=== PATIENT | female | born 1975 | race Two or more races ===

== ENCOUNTER 2020-07-29 05:22 | Day surgery (SDC) | payer OTHER ==
[2020-07-27 16:55] VITALS: BMI 33.2
[2020-07-29] MEDS ORDERED: MIDAZOLAM HCL 2 MG/2 ML SINGLE DOSE VIAL ONE (14:53)
[2020-07-29] MEDS ORDERED: PROPOFOL 20 ML ONE (14:53)
[2020-07-29] MEDS ORDERED: DEXAMETHASONE SOD PHOSPHATE/PF 10 MG/ML SDV ONE (15:08)
[2020-07-29] MEDS ORDERED: BUPIVACAINE HCL 200 ML ONE (15:09)
[2020-07-29] MEDS ORDERED: ceFAZolin SODIUM 1 GM VIAL IVPB ONE (15:50)
[2020-07-29] MEDS ORDERED: ceFAZolin SODIUM 1 GM VIAL ONE (15:53)
[2020-07-29] MEDS ORDERED: BUPIVACAINE HCL 0.5% 250 MG/50 ML VIAL IJ ONE ×2 (15:54)
[2020-07-29] MEDS ORDERED: KETOROLAC TROMETHAMINE 30 MG/1 ML VIAL ONE (17:18)
[2020-07-29] MEDS ORDERED: BUPIVACAINE HCL 100 ML ONE (17:30)
[2020-07-29] MEDS ORDERED: oxyCODONE HCL 5 MG TABLET PO PRN (17:49)
[2020-07-29] MEDS ORDERED: ONDANSETRON 4 MG/2 ML VIAL IVPUSH PRN (17:49)
[2020-07-29] MEDS ORDERED: ACETAMINOPHEN 1000 MG/100 ML VIAL (NON FORMULARY) IVPB ONE (17:50)
[2020-07-29] MEDS ORDERED: ONDANSETRON 4 MG/2 ML VIAL IVPUSH ONE (19:05)
[2020-07-29] MEDS ORDERED: ONDANSETRON 4 MG/2 ML VIAL ONE (19:05)
[2020-07-29 20:52] VITALS: BP 119/71; PULSE 79; TEMP 97.4
== END 2020-07-29 20:50 | disposition home or self-care (01) ==
LOC: JASU-SURG 05:22
PROVIDERS: ATTEND Podiatrist Foot Surgery
PROC: 0SGH04Z Fusion of Right Tarsal Joint with Internal Fixation Device, Open Approach (ICD-10-PCS; 2020-07-29)
PROC: 0JBQ0ZZ Excision of Right Foot Subcutaneous Tissue and Fascia, Open Approach (ICD-10-PCS; principal; 2020-07-29 13:30)
DX: M19.071 Primary osteoarthritis, right ankle and foot (principal); M79.89 Other specified soft tissue disorders; M76.821 Posterior tibial tendinitis, right leg
CPT/HCPCS: 28039; 28725; C1713; 76000-TC-FY; 81025; 88304-TC; 94760; J0131